=== PATIENT | male | born 1955 | race Hispanic/Latino ===

== ENCOUNTER 2020-02-07 08:53 | Emergency (ER) | payer MEDICARE ==
[~2020-02-07] VITALS: Ht 167.6 cm; Wt 72.6 kg
[2020-02-07] MEDS ORDERED: CLOPIDOGREL75 MG PO (09:21)
[2020-02-07] MEDS ORDERED: TOPROL XL25 MG PO (09:21)
[2020-02-07] MEDS ORDERED: LISINOPRIL10 MG PO (09:21)
[2020-02-07] MEDS ORDERED: TERAZOSIN HCL1 MG PO (09:21)
[2020-02-07] MEDS ORDERED: GLIPIZIDE ER5 MG PO (09:21)
[2020-02-07] MEDS ORDERED: OMEPRAZOLE40 MG PO (09:21)
[2020-02-07] MEDS ORDERED: JANUVIA100 MG PO (09:21)
[2020-02-07] MEDS ORDERED: ATORVASTATIN CA20 MG PO (09:21)
[2020-02-07] MEDS ORDERED: METFORMIN HCL500 MG PO (09:21)
[2020-02-07 09:24] LABS: BASOPHILS # (AUTO) 0.1 (0.0-0.1); BASOPHILS % 0.5 % (0.0-1.0); EOSINOPHILS # (AUTO) 0.2 (0.0-0.4); EOSINOPHILS % 1.8 % (0.0-6.0); HEMATOCRIT 39.5 % (38.2-49.6); HEMOGLOBIN 13.2 g/dL (14.0-18.0); LYMPHOCYTES % 15.1 % (18.0-39.1); MEAN CORPUSCULAR HEMOGLOBIN 29.5 pg (28-32); MEAN CORPUSCULAR HGB CONC 33.4 g/dL (31-35); MEAN CORPUSCULAR VOLUME 88.2 fL (81-99); MONOCYTES # (AUTO) 0.7 (0.2-0.8); MONOCYTES % 4.9 % (4.4-11.3); NEUTROPHILS # (AUTO) 10.3 (2.1-6.9); NEUTROPHILS % 76.7 % (38.7-80.0); PLATELET COUNT 297 x10e3/uL (140-360); RED BLOOD COUNT 4.48 x10e6/uL (4.3-5.7); RED CELL DISTRIBUTION WIDTH 13.1 % (11.7-14.4)
[2020-02-07] MEDS ORDERED: NITROGLYCERIN 0.4 MG SUBL SL PRN (09:30)
[2020-02-07 09:35] LABS: INR 0.99; PROTHROMBIN TIME 13.6 seconds (11.9-14.5)
[2020-02-07 09:36] LABS: PARTIAL THROMBOPLASTIN TIME 26.6 seconds (23.8-35.5)
[2020-02-07 09:42] LABS: ALANINE AMINOTRANSFERASE 55 IU/L (0-55); ALBUMIN 3.8 g/dL (3.5-5.0); ALBUMIN/GLOBULIN RATIO 1.3 (0.8-2.0); ALKALINE PHOSPHATASE 128 IU/L (40-150); ANION GAP 10.5 mmol/L (8-16); BLOOD UREA NITROGEN 9 mg/dL (7-26); BUN/CREATININE RATIO 9 (6-25); CALCIUM 8.8 mg/dL (8.4-10.2); CARBON DIOXIDE 27 mmol/L (22-29); CHLORIDE 102 mmol/L (98-107); CREATININE, SERUM 1.02 mg/dL (0.72-1.25); EST GLOMERULAR FILTRATION RATE > 60 ML/MIN (60-); GLUCOSE 347 mg/dL (74-118); POTASSIUM 4.5 mmol/L (3.5-5.1); SODIUM 135 mmol/L (136-145)
--- NOTE | 2020-02-07 09:57 | Diagnostic Imaging Report ---
X-ray chest AP portable Comparison: None History: Chest pain Findings: Poor respiratory effort. Central airways unremarkable. Possible cardiomegaly. No pleural effusion. No pneumothorax. No focal lung disease. Atherosclerotic aorta. Large central pulmonary arteries. Skeletal structures unremarkable. Upper abdomen unremarkable. Impression: Poor respiratory effort. No acute cardiopulmonary disease. Signed by: Anoop Mascroro MD on 02/07/2020 9:53 AM
--- NOTE | 2020-02-07 10:07 | Emergency Department Note ---
History of Present Illnes History of Present Illness Chief Complaint: Chest Pain History of Present Illness This is a 64 year old male presents for CP. C/o constant non radiating cp 1 hr prior to their arrival drinking coffee when pain started denies baldwin/n/v/blurred vision/previous mi's/jaw pain/sob taken directly to room 8 for ekg/line/lab hx of dm/htn/chol states relief with nitro given by ems vessel captain states nothing makes pain worse seen culturalink used to translate . 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 Arrival Mode: [facility] EMS Treatment RAIL LAYER: IV, EKG Additional Treatment RAIL LAYER: nitro History limited by: language barrier Network Security Officer Required: Yes Onset (how long ago): hour(s) (1) Location: L chest Quality: dull Onset quality: sudden Duration (how long): hour(s) (1) Timing of current episode: intermittent Progression: improving Chronicity: new Relieving factors: medication Exacerbating factors: none Associated symptoms: Reports denies other symptoms Treatments prior to arrival: aspirin Previous service: medications given Past Medical/Family History Physician Review I have reviewed the patient's past medical and family history. Any updates have been documented here. Past Medical History Recent Fever: No Clinical Suspicion of Infectio: No New/Unexplained Change in Ment: No Past Medical History: Hypertension, Diabetes, CVA, Hyperlipedemia Past Surgical History: None Social History Smoking Cessation: Never Smoker Counseling Performed: No Alcohol Use: None Any Illegal Drug Use: No Physically hurt or threatened: No Other Any Pre-Existing Lines (PICC,: No Review of Systems Review of Systems Constitutional: Reports no symptoms EENTM: Reports no symptoms Cardiovascular: Reports no symptoms, Reports chest pain Respiratory: Reports no symptoms Gastrointestinal: Reports no symptoms Genitourinary: Reports no symptoms Musculoskeletal: Reports no symptoms Integumentary: Reports no symptoms Neurological: Reports no symptoms Psychological: Reports no symptoms Endocrine: Reports no symptoms Hematological/Lymphatic: Reports no symptoms Physical Exam Related Data Allergies: Coded Allergies: No Known Allergies (Unverified , 02/07/20) Triage Vital Signs Vital Signs Date Time Temp Pulse Resp B/P (MAP) Pulse Ox O2 Delivery O2 Flow Rate FiO2 02/07/20 08:58 97.8 66 18 151/77 100 Room Air Vital signs reviewed: Yes Physical Exam CONSTITUTIONAL Constitutional: Present well-developed, Present well-nourished HENT HENT: Present normocephalic, Present atraumatic, Present oropharynx clear/moist, Present nose normal HENT L/R: Present left ext ear normal, Present right ext ear normal EYES Eyes: Reports PERRL, Reports conjunctivae normal NECK Neck: Present ROM normal PULMONARY Pulmonary: Present effort normal, Present breath sounds normal CARDIOVASCULAR Cardiovascular: Present regular rhythm, Present heart sounds normal, Present capillary refill normal, Present normal rate GASTROINTESTINAL Abdominal: Present soft, Present nontender, Present bowel sounds normal GENITOURINARY Genitourinary: Present exam deferred SKIN Skin: Present warm, Present dry MUSCULOSKELETAL Musculoskeletal: Present ROM normal NEUROLOGICAL Neurological: Present alert, Present oriented x 3, Present no gross motor or sensory deficits PSYCHOLOGICAL Psychological: Present mood/affect normal, Present judgement normal Results Laboratory Result Diagram: 02/07/2015 02/07/20 0915 Laboratory Laboratory Tests Test 02/07/20 09:45 02/07/20 09:15 White Blood Count 13.42 x10e3/uL (4.8-10.8) Red Blood Count 4.48 x10e6/uL (4.3-5.7) Hemoglobin 13.2 g/dL (14.0-18.0) Hematocrit 39.5 % (38.2-49.6) Mean Corpuscular Volume 88.2 fL (81-99) Mean Corpuscular Hemoglobin 29.5 pg (28-32) Mean Corpuscular Hemoglobin Concent 33.4 g/dL (31-35) Red Cell Distribution Width 13.1 % (11.7-14.4) Platelet Count 297 x10e3/uL (140-360) Neutrophils (%) (Auto) 76.7 % (38.7-80.0) Lymphocytes (%) (Auto) 15.1 % (18.0-39.1) Monocytes (%) (Auto) 4.9 % (4.4-11.3) Eosinophils (%) (Auto) 1.8 % (0.0-6.0) Basophils (%) (Auto) 0.5 % (0.0-1.0) Neutrophils # (Auto) 10.3 (2.1-6.9) Lymphocytes # (Auto) 2.0 (1.0-3.2) Monocytes # (Auto) 0.7 (0.2-0.8) Eosinophils # (Auto) 0.2 (0.0-0.4) Basophils # (Auto) 0.1 (0.0-0.1) Absolute Immature Granulocyte (auto 0.13 x10e3/uL (0-0.1) Prothrombin Time 13.6 seconds (11.9-14.5) Prothromb Time International Ratio 0.99 Activated Partial Thromboplast Time 26.6 seconds (23.8-35.5) Sodium Level 135 mmol/L (136-145) Potassium Level 4.5 mmol/L (3.5-5.1) Chloride Level 102 mmol/L (98-107) Carbon Dioxide Level 27 mmol/L (22-29) Anion Gap 10.5 mmol/L (8-16) Blood Urea Nitrogen 9 mg/dL (7-26) Creatinine 1.02 mg/dL (0.72-1.25) Estimat Glomerular Filtration Rate > 60 ML/MIN (60-) BUN/Creatinine Ratio 9 (6-25) Glucose Level 347 mg/dL (74-118) Calcium Level 8.8 mg/dL (8.4-10.2) Total Bilirubin 0.5 mg/dL (0.2-1.2) Aspartate Amino Transf (AST/SGOT) 59 IU/L (5-34) Alanine Aminotransferase (ALT/SGPT) 55 IU/L (0-55) Alkaline Phosphatase 128 IU/L (40-150) Troponin I 0.035 ng/mL (0-0.300) B-Type Natriuretic Peptide 25.7 pg/mL (0-100) Total Protein 6.7 g/dL (6.5-8.1) Albumin 3.8 g/dL (3.5-5.0) Globulin 2.9 g/dL (2.3-3.5) Albumin/Globulin Ratio 1.3 (0.8-2.0) Lab results reviewed: Yes Imaging Imaging results reviewed: Yes Diagnostics Tests Diagnostic test(s) reviewed: Yes Procedures 12 Lead ECG Interpretation ECG Interpretation : ECG: ECG 1 Network Security Officer: Interpreted by ED physician Date: Feb 07, 2020 Rhythm: sinus rhythm Rate: normal QRS axis: normal ST segments normal: Yes T waves normal: Yes Clinical Decision Tools HEART Score HEART Score: HEART Score Response (Comments) Value History Highly suspicious 2 EKG Non specific repolarization 1 Age 45 - 65 1 Risk factors 3 or more risk factors OR hx of CAD 2 Troponin < or = to normal limit Total 6 Assessment & Plan Medical Decision Making MDM 64-year-old man presents for left-sided chest pain. Occurred just prior to arrival. He took 324 of aspirin and EMS gave him nitroglycerin which resolved his pain. He states he has had cardiac catheterization in the past wasn't sure as to where. He thinks he may have had some stents placed. Heart score of 6. Initial troponin and EKG are unremarkable except for some T-wave flattening the lateral leads. At this time I believe the patient will need admission and as we are out of hospital visits will transfer to [place] this patient with Dr. Rogelio Shukla who has agreed to admit the patient. Pain is relieved with Nitro PRN Reassessment Reassessment time: 11:11 Assessment & Plan Final Impression: (1) Chest pain Depart Disposition: TRANS TO OTHER [facility] Last Vital Signs Date Time Temp Pulse Resp B/P (MAP) Pulse Ox O2 Delivery O2 Flow Rate FiO2 02/07/20 08:58 97.8 66 18 151/77 100 Room Air Home Meds Reported Medications Metoprolol Succinate (TOPROL XL) 25 Mg Tab.er.24h, 25 MG PO DAILY, #30 TAB 02/07/20 Lisinopril (LISINOPRIL) 10 Mg Tablet, 20 MG PO DAILY, #30 TAB 02/07/20 Glipizide (GLIPIZIDE ER) 5 Mg Tab.er.24, 10 MG PO DAILY 02/07/20 Terazosin Hcl (TERAZOSIN HCL) 1 Mg Capsule, 1 MG PO DAILY, #30 CAP 02/07/20 Clopidogrel Bisulfate (CLOPIDOGREL) 75 Mg Tablet, 75 MG PO DAILY, #30 TAB 02/07/20 Metformin Hcl (METFORMIN HCL) 500 Mg Tablet, 1000 MG PO BID, #60 TAB 02/07/20 Sitagliptin Phosphate (JANUVIA) 100 Mg Tablet, 100 MG PO DAILY, #30 TAB 02/07/20 Omeprazole (OMEPRAZOLE) 40 Mg Capsule.dr, 40 MG PO DAILY 02/07/20 Atorvastatin Calcium (ATORVASTATIN CALCIUM) 20 Mg Tablet, 80 MG PO HS, #30 TAB 02/07/20 Medications in the ED Nitroglycerin 0.4 mg Q5M PRN SL CHEST PAIN; Start 02/07/20 at 09:30; Stop 03/08/20 at 09:29 ANNY LOUIS MD Feb 07, 2020 10:07
== END 2020-02-07 13:01 | disposition other institution (70) ==
LOC: ER 09:17
DX: R07.9 Chest pain, unspecified (principal); I10 Essential (primary) hypertension; E11.9 Type 2 diabetes mellitus without complications; E78.5 Hyperlipidemia, unspecified; Z11.59 Encounter for screening for other viral diseases; Z86.73 Personal history of transient ischemic attack (TIA), and cerebral infarction without residual deficits
CPT/HCPCS: 36415; 71045; 80053; 83880; 84484; 85025; 85610; 85730; 93005; 99283; U0002

== ENCOUNTER 2021-01-10 22:27 | Emergency (ER) | payer MEDICARE ==
[~2021-01-10] VITALS: Ht 167.6 cm; Wt 72.6 kg
[~2021-01-10 22:27] MED LIST: ATORVASTATIN CA20 MG PO; CLOPIDOGREL75 MG PO; GLIPIZIDE ER5 MG PO; JANUVIA100 MG PO; LISINOPRIL10 MG PO; METFORMIN HCL500 MG PO; OMEPRAZOLE40 MG PO; TERAZOSIN HCL1 MG PO; TOPROL XL25 MG PO
[2021-01-10] MEDS ORDERED: ACETAMINOPHEN 325 MG TAB PO ONE (22:45)
[2021-01-10] MEDS ORDERED: CEFTRIAXONE 1 GM in SODIUM CHLORIDE 0.9% 50ML 50 ML IV ONE (22:45)
[2021-01-10 22:53] LABS: BASOPHILS % 0.2 % (0.0-1.0); HEMOGLOBIN 13.6 g/dL (14.0-18.0); LYMPHOCYTES # (AUTO) 3.5 (1.0-3.2); LYMPHOCYTES % 28.5 % (18.0-39.1); MEAN CORPUSCULAR HEMOGLOBIN 29.4 pg (28-32); MEAN CORPUSCULAR VOLUME 86.4 fL (81-99); MONOCYTES # (AUTO) 1.2 (0.2-0.8); MONOCYTES % 9.8 % (4.4-11.3); NEUTROPHILS # (AUTO) 7.4 (2.1-6.9); PLATELET COUNT 351 x10e3/uL (140-360); RED BLOOD COUNT 4.63 x10e6/uL (4.3-5.7); RED CELL DISTRIBUTION WIDTH 13.2 % (11.7-14.4)
[2021-01-10 23:02] LABS: CLARITY,URINE CLEAR (CLEAR); COLOR,URINE YELLOW (YELLOW); KETONES,URINE 1+ (NEGATIVE); LEUKOCYTE ESTERASE ,URINE NEGATIVE (NEGATIVE); NITRITE,URINE NEGATIVE (NEGATIVE); PROTEIN,URINE DIPSTICK 1+ (NEGATIVE); URINE UROBILINOGEN 1 mg/dL (0.2 - 1)
[2021-01-10 23:08] LABS: AMORPHOUS SEDIMENT,URINE FEW (FEW); BACTERIA,URINE FEW /HPF; EPITHELIAL CELLS,URINE RARE /LPF; RBC,URINE 0-5 /HPF (0-5); WBC,URINE (MAN) 0-5 /HPF (0-5)
[2021-01-10 23:11] LABS: ALBUMIN/GLOBULIN RATIO 1.1 (0.8-2.0); ANION GAP 17.6 mmol/L (8-16); CALCIUM 8.5 mg/dL (8.4-10.2); CREATININE, SERUM 0.96 mg/dL (0.72-1.25); POTASSIUM 3.6 mmol/L (3.5-5.1)
[2021-01-10 23:17] LABS: CREATINE KINASE MB 0.8 ng/mL (0-5.0)
[2021-01-11 03:47] VITALS: BP 132/65
== END 2021-01-11 02:00 | disposition home or self-care (01) ==
LOC: ER 23:43
DX: J20.9 Acute bronchitis, unspecified (principal); E78.5 Hyperlipidemia, unspecified; I10 Essential (primary) hypertension; Z86.73 Personal history of transient ischemic attack (TIA), and cerebral infarction without residual deficits; E11.9 Type 2 diabetes mellitus without complications; R05 Cough; Z20.822 Contact with and (suspected) exposure to COVID-19
CPT/HCPCS: 36415; 70450; 71045; 80053; 81001; 82550; 82553; 83605; 84484; 85025; 87040; 87086; 93005; 99284; J0696; U0002

== ENCOUNTER 2024-05-17 11:45 | Inpatient (IN) | payer MEDICARE ==
[~2024-05-17] VITALS: Ht 172.7 cm; Wt 82.1 kg
[2024-05-17 12:06] VITALS: PULSE 72; RESP 18; TEMP 98.3
[2024-05-17 12:48] LABS: BASOPHILS % 0.4 % (0.0-1.0); EOSINOPHILS # (AUTO) 0.2 (0.0-0.4); EOSINOPHILS % 1.7 % (0.0-6.0); HEMATOCRIT 40.5 % (38.2-49.6); HEMOGLOBIN 13.4 g/dL (14.0-18.0); LYMPHOCYTES % 30.7 % (18.0-39.1); MEAN CORPUSCULAR HEMOGLOBIN 30.1 pg (28-32); MEAN CORPUSCULAR HGB CONC 33.1 g/dL (31-35); MONOCYTES # (AUTO) 0.7 (0.2-0.8); MONOCYTES % 7.2 % (4.4-11.3); NEUTROPHILS # (AUTO) 5.8 (2.1-6.9); NEUTROPHILS % 59.5 % (38.7-80.0); PLATELET COUNT 319 x10e3/uL (140-360); RED BLOOD COUNT 4.45 x10e6/uL (4.3-5.7); RED CELL DISTRIBUTION WIDTH 12.4 % (11.7-14.4); WHITE BLOOD COUNT 9.68 x10e3/uL (4.8-10.8)
[2024-05-17 12:54] LABS: PROTHROMBIN TIME 13.8 seconds (11.9-14.5)
[2024-05-17 12:55] LABS: PARTIAL THROMBOPLASTIN TIME 27.3 seconds (23.8-35.5)
[2024-05-17 13:04] LABS: ALBUMIN 3.6 g/dL (3.5-5.0); ANION GAP 15.1 mmol/L (8-16); BILIRUBIN,TOTAL 0.5 mg/dL (0.2-1.2); CALCIUM 9.3 mg/dL (8.4-10.2); CREATININE, SERUM 0.86 mg/dL (0.72-1.25); MAGNESIUM 1.8 MG/DL (1.3-2.1); POTASSIUM 4.1 mmol/L (3.5-5.1); TOTAL PROTEIN 7.3 g/dL (6.5-8.1)
[2024-05-17 13:10] LABS: TROPONIN I 0.011 ng/mL (0-0.300)
[2024-05-17] MEDS: Vancomycin IV 1 GM in SODIUM CHLORIDE 0.9% 250ML 250 ML IV ONE (13:32)
[2024-05-17] MEDS ORDERED: DEXTROSE 50% SYRINGE 50 ML IV PRN (13:45)
[2024-05-17] MEDS ORDERED: ONDANSETRON HCL INJ 2MG/ML 2ML 2 MG/ML VIAL IV PRN (13:45)
[2024-05-17] MEDS: INSULIN LISPRO 100 UNIT/1 ML 3ML VIAL SQ SCH (16:30)
[2024-05-17 16:47] VITALS: BP 178/76; PULSE 58; RESP 17; TEMP 97.5; O2SAT 100
[2024-05-17] MEDS: SODIUM CHLORIDE 0.9% 1000ML 1,000 ML IV SCH (18:16)
[2024-05-17 18:23] VITALS: BP 178/76; PULSE 58; RESP 17; TEMP 97.5; O2SAT 100
[2024-05-17] MEDS ORDERED: ASPIRIN81 MG PO (18:36)
[2024-05-17] MEDS ORDERED: LISINOPRIL-HCT1 EAC1 PO (18:36)
[2024-05-17] MEDS ORDERED: ULTRAM 50MG50 MG PO (18:36)
[2024-05-17] MEDS: Morphine 4mg INJECTION 4 MG/ML INJ IV PRN (18:43)
[2024-05-17 20:00] VITALS: BP 182/84; PULSE 66; RESP 18; TEMP 98.5; O2SAT 100
[2024-05-17 21:00] VITALS: BP 182/84; PULSE 66; RESP 18; TEMP 98.5; O2SAT 100
[2024-05-17] MEDS ORDERED: FLOMAX0.4 MG PO (23:30)
[2024-05-18] VITALS (8 sets, daily range): BP systolic 135–178; BP diastolic 65–87; PULSE 64–88; RESP 18–20; TEMP 97.3–98.8; O2SAT 98–100
[2024-05-18 05:38] LABS: BASOPHILS # (AUTO) 0.1 (0.0-0.1); BASOPHILS % 0.5 % (0.0-1.0); EOSINOPHILS # (AUTO) 0.2 (0.0-0.4); EOSINOPHILS % 2.3 % (0.0-6.0); HEMATOCRIT 37.1 % (38.2-49.6); HEMOGLOBIN 12.2 g/dL (14.0-18.0); LYMPHOCYTES # (AUTO) 3.2 (1.0-3.2); MEAN CORPUSCULAR HEMOGLOBIN 30.3 pg (28-32); MEAN CORPUSCULAR HGB CONC 32.9 g/dL (31-35); MEAN CORPUSCULAR VOLUME 92.3 fL (81-99); MONOCYTES # (AUTO) 0.7 (0.2-0.8); MONOCYTES % 6.9 % (4.4-11.3); NEUTROPHILS # (AUTO) 5.7 (2.1-6.9); PLATELET COUNT 281 x10e3/uL (140-360); RED BLOOD COUNT 4.02 x10e6/uL (4.3-5.7); RED CELL DISTRIBUTION WIDTH 12.5 % (11.7-14.4); WHITE BLOOD COUNT 9.88 x10e3/uL (4.8-10.8)
[2024-05-18 06:10] LABS: ALBUMIN 3.1 g/dL (3.5-5.0); ANION GAP 10.6 mmol/L (8-16); BILIRUBIN,TOTAL 0.4 mg/dL (0.2-1.2); CALCIUM 8.6 mg/dL (8.4-10.2); CREATININE, SERUM 0.82 mg/dL (0.72-1.25); POTASSIUM 3.6 mmol/L (3.5-5.1); TOTAL PROTEIN 6.3 g/dL (6.5-8.1)
[2024-05-18] MEDS: ASPIRIN 81 MG CHEW TAB PO SCH (10:25)
[2024-05-18] MEDS: SITAGLIPTIN 100 MG TAB PO SCH (10:25)
[2024-05-18] MEDS: LISINOPRIL 20 MG TAB PO SCH (10:25)
[2024-05-18] MEDS: PANTOPRAZOLE SOD 40 MG TABEC PO SCH (10:25)
[2024-05-18] MEDS: CLOPIDOGREL BISULFATE 75 MG TAB PO SCH (10:25)
[2024-05-18] MEDS: TERAZOSIN HCL 1 MG CAP PO SCH (10:25)
[2024-05-18] MEDS: TAMSULOSIN HCL 0.4 MG CAP PO SCH (10:25)
[2024-05-18] MEDS: INSULIN LISPRO 100 UNIT/1 ML 3ML VIAL SQ SCH (10:27)
[2024-05-18] MEDS: INSULIN GLARGINE 100 UNITS/ML VIAL SQ ONE (10:27)
[2024-05-18] MEDS: HYDRALAZINE HCL 20 MG/ML VIAL IV PRN (12:34)
[2024-05-18] MEDS: INSULIN GLARGINE 100 UNITS/ML VIAL SQ SCH (21:00)
[2024-05-18] MEDS: PREGABALIN 50 MG CAP PO SCH (21:52)
[2024-05-18] MEDS: ATORVASTATIN 40 MG TAB PO SCH (21:53)
[2024-05-19] VITALS (7 sets, daily range): BP systolic 148–167; BP diastolic 67–86; PULSE 63–88; RESP 18–20; TEMP 97.9–99.5; O2SAT 95–100
[2024-05-19 05:16] LABS: BASOPHILS # (AUTO) 0.1 (0.0-0.1); BASOPHILS % 0.5 % (0.0-1.0); EOSINOPHILS # (AUTO) 0.1 (0.0-0.4); HEMATOCRIT 37.7 % (38.2-49.6); HEMOGLOBIN 12.5 g/dL (14.0-18.0); LYMPHOCYTES # (AUTO) 2.7 (1.0-3.2); LYMPHOCYTES % 27.3 % (18.0-39.1); MEAN CORPUSCULAR HEMOGLOBIN 30.2 pg (28-32); MEAN CORPUSCULAR HGB CONC 33.2 g/dL (31-35); MEAN CORPUSCULAR VOLUME 91.1 fL (81-99); MONOCYTES # (AUTO) 0.6 (0.2-0.8); MONOCYTES % 6.1 % (4.4-11.3); NEUTROPHILS # (AUTO) 6.5 (2.1-6.9); NEUTROPHILS % 64.8 % (38.7-80.0); PLATELET COUNT 292 x10e3/uL (140-360); RED BLOOD COUNT 4.14 x10e6/uL (4.3-5.7); RED CELL DISTRIBUTION WIDTH 12.8 % (11.7-14.4); WHITE BLOOD COUNT 9.96 x10e3/uL (4.8-10.8)
[2024-05-19 05:42] LABS: ANION GAP 12.6 mmol/L (8-16); CALCIUM 8.7 mg/dL (8.4-10.2); CREATININE, SERUM 0.9 mg/dL (0.72-1.25); POTASSIUM 3.6 mmol/L (3.5-5.1)
[2024-05-19] MEDS ORDERED: IOPAMIDOL 370 MG/ML 100 ML INFUS..BTL INJ ONE (16:24)
[2024-05-19] MEDS ORDERED: SODIUM CHLORIDE 0.9% 100 ML ONE (16:24)
[2024-05-20] VITALS (9 sets, daily range): BP systolic 146–161; BP diastolic 69–86; PULSE 57–79; RESP 18–19; TEMP 97.7–98.4; O2SAT 95–100
[2024-05-20 06:29] LABS: CHOL/HDL RATIO 3.9 (3.9-4.7)
[2024-05-20] MEDS: LISINOPRIL 20 MG TAB PO SCH (08:44)
[2024-05-20] MEDS: MUPIROCIN 2% OINT 22 GM TUBE TOP SCH ×2 (10:30→20:51)
[2024-05-21 06:48] LABS: BASOPHILS % 0.4 % (0.0-1.0); EOSINOPHILS # (AUTO) 0.2 (0.0-0.4); EOSINOPHILS % 2.6 % (0.0-6.0); HEMATOCRIT 39.1 % (38.2-49.6); HEMOGLOBIN 12.8 g/dL (14.0-18.0); LYMPHOCYTES # (AUTO) 2.6 (1.0-3.2); LYMPHOCYTES % 28.2 % (18.0-39.1); MEAN CORPUSCULAR HEMOGLOBIN 30.3 pg (28-32); MEAN CORPUSCULAR HGB CONC 32.7 g/dL (31-35); MEAN CORPUSCULAR VOLUME 92.4 fL (81-99); MONOCYTES # (AUTO) 0.6 (0.2-0.8); MONOCYTES % 6.9 % (4.4-11.3); NEUTROPHILS # (AUTO) 5.7 (2.1-6.9); NEUTROPHILS % 61.7 % (38.7-80.0); PLATELET COUNT 292 x10e3/uL (140-360); RED BLOOD COUNT 4.23 x10e6/uL (4.3-5.7); RED CELL DISTRIBUTION WIDTH 12.9 % (11.7-14.4)
[2024-05-21 07:11] LABS: ANION GAP 12.7 mmol/L (8-16); CALCIUM 8.8 mg/dL (8.4-10.2); CREATININE, SERUM 0.85 mg/dL (0.72-1.25); POTASSIUM 3.7 mmol/L (3.5-5.1)
[2024-05-21 08:45] VITALS: BP 161/81; PULSE 57; RESP 19; TEMP 98.2; O2SAT 95
[2024-05-21 09:14] VITALS: BP 180/83; PULSE 68; RESP 20; TEMP 98.6; O2SAT 98
[2024-05-21 16:48] VITALS: BP 167/78; PULSE 61; RESP 18; TEMP 97.9; O2SAT 100
[2024-05-21 20:00] VITALS: BP 169/69; PULSE 63; RESP 18; TEMP 97.5; O2SAT 100
[2024-05-21] MEDS: TRAMADOL HCL 50 MG TAB PO PRN (22:04)
[2024-05-22] VITALS: BP 159/79; PULSE 67; RESP 18; TEMP 97.6; O2SAT 98
[2024-05-22 04:00] VITALS: BP 158/92; PULSE 63; RESP 18; TEMP 98; O2SAT 100
[2024-05-22 08:45] VITALS: BP 131/74; PULSE 63; RESP 18; TEMP 98; O2SAT 100
[2024-05-22 12:24] VITALS: BP 127/80; PULSE 64; RESP 17; TEMP 98.3; O2SAT 98
[2024-05-22 16:00] VITALS: BP 132/64; PULSE 61; RESP 19; TEMP 97.5; O2SAT 97
[2024-05-22 20:00] VITALS: BP 150/80; PULSE 65; RESP 18; TEMP 98.2; O2SAT 99
[2024-05-23] VITALS (9 sets, daily range): BP systolic 120–191; BP diastolic 61–93; PULSE 50–75; RESP 15–19; TEMP 97.5–98.1; O2SAT 96–100
[2024-05-23] MEDS ORDERED: HEPARIN SOD/SOD CHLORIDE 2,000 ML ONE (09:16)
[2024-05-23] MEDS ORDERED: HEPARIN SOD (PORCINE) 1000 UNIT/ML 30ML ONE (09:16)
[2024-05-23] MEDS ORDERED: VERAPAMIL HCL 2.5 MG/ML 2 ML VIAL ONE (09:16)
[2024-05-23] MEDS ORDERED: LIDOCAINE HCL 2% LOCAL 20 ML VIAL ONE (09:16)
[2024-05-23] MEDS ORDERED: NITROGLYCERIN/D5W 200 MCG/ML 250 ML ONE (09:17)
[2024-05-23] MEDS ORDERED: SODIUM CHLORIDE 0.9% 1000ML 1,000 ML ONE ×2 (09:17→09:30)
[2024-05-23] MEDS ORDERED: IOPAMIDOL 370 MG/ML 100 ML INFUS..BTL INJ ONE ×3 (09:17→11:50)
[2024-05-23] MEDS ORDERED: FENTANYL CITRATE/PF 100MCG/2 ML INJ ONE ×2 (09:50→12:01)
[2024-05-23] MEDS ORDERED: MIDAZOLAM HCL 2 MG/2 ML VIAL ONE ×3 (09:50→12:00)
[2024-05-23] MEDS ORDERED: HEPARIN SOD/SOD CHLORIDE 1,000 ML ONE (12:06)
[2024-05-23] MEDS ORDERED: CLOPIDOGREL BISULFATE 75 MG TAB ONE (13:24)
[2024-05-24 04:10] VITALS: BP 148/67; PULSE 73; RESP 18; TEMP 98.3; O2SAT 100
[2024-05-24 08:23] VITALS: BP 152/65; PULSE 68; RESP 18; TEMP 98; O2SAT 98
[2024-05-24 08:38] VITALS: BP 152/65; PULSE 68; RESP 18; TEMP 98; O2SAT 98
[2024-05-24] MEDS: HYDROCHLOROTHIAZIDE 25 MG TAB PO SCH (09:04)
[2024-05-24 11:45] VITALS: BP 159/80; PULSE 83; RESP 18; TEMP 97.7; O2SAT 100
== END 2024-05-24 12:17 | disposition home or self-care (01) | DRG 271 ==
LOC: ER 11:48 → ERHOLD 13:46 → MED/SURG 16:58 → MED/SURG2 05-20 18:29
PROVIDERS: ADMIT Internal Medicine; ATTEND Internal Medicine
PROC: 04CK3ZZ Extirpation of Matter from Right Femoral Artery, Percutaneous Approach (ICD-10-PCS; principal; 2024-05-23)
PROC: 04CP3ZZ Extirpation of Matter from Right Anterior Tibial Artery, Percutaneous Approach (ICD-10-PCS; 2024-05-23)
PROC: 047K3Z1 Dilation of Right Femoral Artery using Drug-Coated Balloon, Percutaneous Approach (ICD-10-PCS; 2024-05-23)
PROC: 047P3ZZ Dilation of Right Anterior Tibial Artery, Percutaneous Approach (ICD-10-PCS; 2024-05-23)
PROC: B41D1ZZ Fluoroscopy of Aorta and Bilateral Lower Extremity Arteries using Low Osmolar Contrast (ICD-10-PCS; 2024-05-23)
DX: E11.51 Type 2 diabetes mellitus with diabetic peripheral angiopathy without gangrene (principal); I70.92 Chronic total occlusion of artery of the extremities; I87.331 Chronic venous hypertension (idiopathic) with ulcer and inflammation of right lower extremity; L03.115 Cellulitis of right lower limb; L97.819 Non-pressure chronic ulcer of other part of right lower leg with unspecified severity; E11.621 Type 2 diabetes mellitus with foot ulcer; L97.519 Non-pressure chronic ulcer of other part of right foot with unspecified severity; I70.235 Atherosclerosis of native arteries of right leg with ulceration of other part of foot; I70.202 Unspecified atherosclerosis of native arteries of extremities, left leg; L03.031 Cellulitis of right toe; E11.65 Type 2 diabetes mellitus with hyperglycemia; E11.628 Type 2 diabetes mellitus with other skin complications; Z79.84 Long term (current) use of oral hypoglycemic drugs; I10 Essential (primary) hypertension; I25.10 Atherosclerotic heart disease of native coronary artery without angina pectoris; Z95.5 Presence of coronary angioplasty implant and graft; E78.5 Hyperlipidemia, unspecified; N40.0 Benign prostatic hyperplasia without lower urinary tract symptoms; Z91.119 Patient's noncompliance with dietary regimen due to unspecified reason; Z91.148 Patient's other noncompliance with medication regimen for other reason; Z86.73 Personal history of transient ischemic attack (TIA), and cerebral infarction without residual deficits; Z79.899 Other long term (current) drug therapy
CPT/HCPCS: 36415; 37220; 37225; 37229; 71045; 75625; 75635; 75716; 76937; 80048; 80053; 80061; 82550; 82948; 83036; 83735; 84484; 85025; 85347; 85610; 85730; 87040; 93005; 93925; 96372; 99152; 99153; 99252; 99284; C1724; C1725; C1760; C1769; C1887; C1894; C2623; J0360; J1644; J1815; J2003; J2250; J2270; J2543; J7030; J7050; Q9967

== ENCOUNTER 2024-08-31 08:14 | Inpatient (IN) | payer MEDICARE ==
[~2024-08-31] VITALS: Ht 172.7 cm; Wt 82.1 kg
[~2024-08-31 08:14] MED LIST changes: +ASPIRIN81 MG PO; +FLOMAX0.4 MG PO; +LISINOPRIL-HCT1 EAC1 PO; +ULTRAM 50MG50 MG PO
[2024-08-31 08:46] LABS: BASOPHILS % 0.3 % (0.0-1.0); EOSINOPHILS # (AUTO) 0.1 (0.0-0.4); EOSINOPHILS % 0.6 % (0.0-6.0); HEMOGLOBIN 14.1 g/dL (14.0-18.0); LYMPHOCYTES # (AUTO) 2.6 (1.0-3.2); LYMPHOCYTES % 21.8 % (18.0-39.1); MEAN CORPUSCULAR HEMOGLOBIN 29.3 pg (28-32); MEAN CORPUSCULAR HGB CONC 34.4 g/dL (31-35); MEAN CORPUSCULAR VOLUME 85.2 fL (81-99); MONOCYTES # (AUTO) 0.6 (0.2-0.8); MONOCYTES % 5.1 % (4.4-11.3); NEUTROPHILS # (AUTO) 8.5 (2.1-6.9); NEUTROPHILS % 71.9 % (38.7-80.0); PLATELET COUNT 301 x10e3/uL (140-360); RED BLOOD COUNT 4.81 x10e6/uL (4.3-5.7); RED CELL DISTRIBUTION WIDTH 13.2 % (11.7-14.4); WHITE BLOOD COUNT 11.83 x10e3/uL (4.8-10.8)
[2024-08-31] MEDS: SODIUM CHLORIDE 0.9% 1000ML 1,000 ML IV STA (08:56)
[2024-08-31 09:03] LABS: ALANINE AMINOTRANSFERASE 35 IU/L (0-55); ALBUMIN 4.2 g/dL (3.5-5.0); ALBUMIN/GLOBULIN RATIO 1.2 (0.8-2.0); ALKALINE PHOSPHATASE 104 IU/L (40-150); ANION GAP 15.7 mmol/L (8-16); BILIRUBIN,TOTAL 0.9 mg/dL (0.2-1.2); BLOOD UREA NITROGEN 15 mg/dL (7-26); BUN/CREATININE RATIO 16 (6-25); CALCIUM 9.4 mg/dL (8.4-10.2); CARBON DIOXIDE 23 mmol/L (22-29); CHLORIDE 99 mmol/L (98-107); CREATINE KINASE 144 IU/L (30-200); CREATININE, SERUM 0.94 mg/dL (0.72-1.25); EST GLOMERULAR FILTRATION RATE 88 ML/MIN (>=60); GLUCOSE 175 mg/dL (74-118); POTASSIUM 3.7 mmol/L (3.5-5.1); SODIUM 134 mmol/L (136-145); TOTAL PROTEIN 7.8 g/dL (6.5-8.1)
[2024-08-31 09:05] LABS: INR 0.98; PROTHROMBIN TIME 13.6 seconds (11.9-14.5)
[2024-08-31 09:06] LABS: PARTIAL THROMBOPLASTIN TIME 27.6 seconds (23.8-35.5)
[2024-08-31 09:12] LABS: TROPONIN I < 0.001 ng/mL (0-0.300)
[2024-08-31] MEDS: Vancomycin IV 1 GM in SODIUM CHLORIDE 0.9% 250ML 250 ML IV ONE (09:31)
[2024-08-31] MEDS ORDERED: Morphine 2mg Syringe 2 MG/ML SYR IV PRN (10:00)
[2024-08-31] MEDS ORDERED: ONDANSETRON HCL INJ 2MG/ML 2ML 2 MG/ML VIAL IV PRN (10:00)
[2024-08-31] MEDS: SODIUM CHLORIDE 0.9% 1000ML 1,000 ML IV SCH (10:03)
[2024-08-31] MEDS: CLOPIDOGREL BISULFATE 75 MG TAB PO ONE (10:14)
[2024-08-31] MEDS: ASPIRIN 81 MG CHEW TAB PO ONE (10:14)
[2024-08-31 14:04] VITALS: PULSE 79; RESP 16; TEMP 98.1
[2024-08-31 14:35] VITALS: BP 137/93; PULSE 67; RESP 18; TEMP 99.6; O2SAT 100
[2024-08-31 19:20] VITALS: BP 165/67; PULSE 61; RESP 20; TEMP 98.1; O2SAT 99
[2024-08-31] MEDS: ATORVASTATIN 40 MG TAB PO SCH (20:43)
[2024-08-31] MEDS: Vancomycin IV 1 GM in SODIUM CHLORIDE 0.9% 250ML 250 ML IV SCH (20:43)
[2024-08-31] MEDS ORDERED: DEXTROSE 50% SYRINGE 50 ML IV PRN (23:15)
[2024-08-31] MEDS ORDERED: TRAMADOL HCL 50 MG TAB PO PRN (23:15)
[2024-09-01] VITALS (8 sets, daily range): BP systolic 148–172; BP diastolic 56–88; PULSE 58–77; RESP 18–22; TEMP 97.5–98.6; O2SAT 99–100
[2024-09-01 07:22] LABS: BASOPHILS % 0.4 % (0.0-1.0); EOSINOPHILS # (AUTO) 0.1 (0.0-0.4); EOSINOPHILS % 1.4 % (0.0-6.0); HEMATOCRIT 39.8 % (38.2-49.6); HEMOGLOBIN 13.7 g/dL (14.0-18.0); LYMPHOCYTES # (AUTO) 2.4 (1.0-3.2); LYMPHOCYTES % 23.8 % (18.0-39.1); MEAN CORPUSCULAR HEMOGLOBIN 29.7 pg (28-32); MEAN CORPUSCULAR HGB CONC 34.4 g/dL (31-35); MEAN CORPUSCULAR VOLUME 86.1 fL (81-99); MONOCYTES # (AUTO) 0.7 (0.2-0.8); MONOCYTES % 6.9 % (4.4-11.3); NEUTROPHILS # (AUTO) 6.8 (2.1-6.9); PLATELET COUNT 270 x10e3/uL (140-360); RED BLOOD COUNT 4.62 x10e6/uL (4.3-5.7); RED CELL DISTRIBUTION WIDTH 13.2 % (11.7-14.4); WHITE BLOOD COUNT 10.19 x10e3/uL (4.8-10.8)
[2024-09-01 08:00] LABS: ALBUMIN 3.8 g/dL (3.5-5.0); ALBUMIN/GLOBULIN RATIO 1.2 (0.8-2.0); ANION GAP 13.9 mmol/L (8-16); BILIRUBIN,TOTAL 0.8 mg/dL (0.2-1.2); CREATININE, SERUM 0.88 mg/dL (0.72-1.25); POTASSIUM 3.9 mmol/L (3.5-5.1)
[2024-09-01] MEDS: INSULIN LISPRO 100 UNIT/1 ML 3ML VIAL SQ SCH (08:33)
[2024-09-01] MEDS: SITAGLIPTIN 100 MG TAB PO SCH (08:39)
[2024-09-01] MEDS: PANTOPRAZOLE SOD 40 MG TABEC PO SCH (08:39)
[2024-09-01] MEDS: TAMSULOSIN HCL 0.4 MG CAP PO SCH (08:39)
[2024-09-01] MEDS: ASPIRIN 81 MG ENTERIC COATED PO SCH (08:39)
[2024-09-01] MEDS: CLOPIDOGREL BISULFATE 75 MG TAB PO SCH (08:39)
[2024-09-01] MEDS: TERAZOSIN HCL 1 MG CAP PO SCH (08:39)
[2024-09-01] MEDS ORDERED: CLOPIDOGREL BISULFATE 75 MG TAB PO SCH (09:00)
[2024-09-01] MEDS: ATORVASTATIN 40 MG TAB PO SCH (21:29)
[2024-09-02] VITALS (7 sets, daily range): BP systolic 139–180; BP diastolic 66–78; PULSE 63–87; RESP 17–21; TEMP 97.3–98.6; O2SAT 93–100
[2024-09-02] MEDS ORDERED: HYDRALAZINE HCL 20 MG/ML VIAL IV PRN (10:30)
[2024-09-02] MEDS ORDERED: ACETAMINOPHEN 325 MG TAB PO PRN (10:30)
[2024-09-02] MEDS: NIFEDIPINE CR 30 MG TAB PO ONE (10:56)
[2024-09-02] MEDS: RIVAROXABAN 10 MG TABLET PO SCH (12:50)
[2024-09-03 00:46] VITALS: BP 149/72; PULSE 65; RESP 17; TEMP 98.3; O2SAT 100
[2024-09-03] MEDS: NIFEDIPINE CR 30 MG TAB PO SCH (05:51)
[2024-09-03 08:26] LABS: BASOPHILS % 0.4 % (0.0-1.0); EOSINOPHILS # (AUTO) 0.1 (0.0-0.4); EOSINOPHILS % 0.9 % (0.0-6.0); HEMATOCRIT 39.2 % (38.2-49.6); HEMOGLOBIN 13.3 g/dL (14.0-18.0); LYMPHOCYTES % 28.2 % (18.0-39.1); MEAN CORPUSCULAR HEMOGLOBIN 29.7 pg (28-32); MEAN CORPUSCULAR HGB CONC 33.9 g/dL (31-35); MEAN CORPUSCULAR VOLUME 87.5 fL (81-99); MONOCYTES # (AUTO) 0.6 (0.2-0.8); MONOCYTES % 5.6 % (4.4-11.3); NEUTROPHILS # (AUTO) 6.8 (2.1-6.9); NEUTROPHILS % 64.6 % (38.7-80.0); PLATELET COUNT 260 x10e3/uL (140-360); RED BLOOD COUNT 4.48 x10e6/uL (4.3-5.7); RED CELL DISTRIBUTION WIDTH 13.2 % (11.7-14.4); WHITE BLOOD COUNT 10.56 x10e3/uL (4.8-10.8)
[2024-09-03 08:42] VITALS: BP 160/68; PULSE 71; RESP 20; TEMP 98.2; O2SAT 100
[2024-09-03 08:46] VITALS: BP 160/68; PULSE 71; RESP 20; TEMP 98.2; O2SAT 100
[2024-09-03 08:56] LABS: ANION GAP 14.6 mmol/L (8-16); CALCIUM 8.7 mg/dL (8.4-10.2); CREATININE, SERUM 0.82 mg/dL (0.72-1.25); POTASSIUM 3.6 mmol/L (3.5-5.1)
[2024-09-03 12:16] VITALS: BP 132/82; PULSE 78; RESP 20; TEMP 98.6; O2SAT 94
[2024-09-03 16:11] VITALS: BP 161/79; PULSE 72; RESP 20; TEMP 98.4; O2SAT 99
[2024-09-03 20:00] VITALS: BP 170/76; PULSE 63; RESP 20; TEMP 98.6; O2SAT 99
[2024-09-04] VITALS (8 sets, daily range): BP systolic 148–171; BP diastolic 68–81; PULSE 62–100; RESP 17–20; TEMP 97.4–98.6; O2SAT 99–100
[2024-09-04] MEDS: NIFEDIPINE CR 30 MG TAB PO SCH (17:03)
[2024-09-05 07:55] VITALS: BP 162/70; PULSE 71; RESP 18; TEMP 98.1; O2SAT 100
[2024-09-05 08:16] VITALS: BP 162/70; PULSE 71; RESP 18; TEMP 98.1; O2SAT 100
[2024-09-05 12:30] VITALS: BP 158/77; PULSE 77; RESP 20; TEMP 98; O2SAT 99
== END 2024-09-05 14:29 | disposition home or self-care (01) | DRG 638 ==
LOC: ER 08:19 → ERHOLD 09:56 → MED/SURG3 14:32
PROVIDERS: ADMIT Internal Medicine; ATTEND Internal Medicine
DX: E11.621 Type 2 diabetes mellitus with foot ulcer (principal); L03.115 Cellulitis of right lower limb; E11.51 Type 2 diabetes mellitus with diabetic peripheral angiopathy without gangrene; E11.42 Type 2 diabetes mellitus with diabetic polyneuropathy; L03.031 Cellulitis of right toe; L97.511 Non-pressure chronic ulcer of other part of right foot limited to breakdown of skin; I70.235 Atherosclerosis of native arteries of right leg with ulceration of other part of foot; I16.0 Hypertensive urgency; I10 Essential (primary) hypertension; E78.5 Hyperlipidemia, unspecified; M19.071 Primary osteoarthritis, right ankle and foot; M72.2 Plantar fascial fibromatosis; Z79.4 Long term (current) use of insulin; Z79.82 Long term (current) use of aspirin; Z79.01 Long term (current) use of anticoagulants; Z79.02 Long term (current) use of antithrombotics/antiplatelets; Z79.84 Long term (current) use of oral hypoglycemic drugs; Z98.62 Peripheral vascular angioplasty status; Z86.73 Personal history of transient ischemic attack (TIA), and cerebral infarction without residual deficits; Z87.891 Personal history of nicotine dependence
CPT/HCPCS: 36415; 71045; 80048; 80053; 82550; 82948; 83036; 84484; 85025; 85610; 85651; 85730; 86140; 93925; 96372; 99252; 99284; J0360; J2543; J7030; J7050

== ENCOUNTER 2024-10-07 17:43 | Emergency (ER) | payer MEDICARE ==
[~2024-10-07] VITALS: Ht 162.6 cm; Wt 82.1 kg
[~2024-10-07 17:43] MED LIST changes: +NIFEDIPINE ER30 M1 PO
[2024-10-07 18:22] VITALS: TEMP 98.3
[2024-10-07 19:09] LABS: BASOPHILS # (AUTO) 0.1 (0.0-0.1); BASOPHILS % 0.5 % (0.0-1.0); EOSINOPHILS # (AUTO) 0.1 (0.0-0.4); EOSINOPHILS % 1.1 % (0.0-6.0); HEMATOCRIT 37.5 % (38.2-49.6); LYMPHOCYTES # (AUTO) 2.7 (1.0-3.2); LYMPHOCYTES % 25.4 % (18.0-39.1); MEAN CORPUSCULAR HEMOGLOBIN 29.4 pg (28-32); MEAN CORPUSCULAR HGB CONC 34.7 g/dL (31-35); MEAN CORPUSCULAR VOLUME 84.8 fL (81-99); MONOCYTES # (AUTO) 0.7 (0.2-0.8); MONOCYTES % 6.3 % (4.4-11.3); NEUTROPHILS # (AUTO) 7.1 (2.1-6.9); NEUTROPHILS % 66.4 % (38.7-80.0); PLATELET COUNT 354 x10e3/uL (140-360); RED BLOOD COUNT 4.42 x10e6/uL (4.3-5.7); RED CELL DISTRIBUTION WIDTH 13.4 % (11.7-14.4); WHITE BLOOD COUNT 10.66 x10e3/uL (4.8-10.8)
[2024-10-07 19:19] LABS: INR 1.02
[2024-10-07 19:20] LABS: PARTIAL THROMBOPLASTIN TIME 28.4 seconds (23.8-35.5)
[2024-10-07 19:29] LABS: ALBUMIN 4.4 g/dL (3.5-5.0); ALBUMIN/GLOBULIN RATIO 1.2 (0.8-2.0); BILIRUBIN,TOTAL 0.5 mg/dL (0.2-1.2); CALCIUM 9.9 mg/dL (8.4-10.2); CREATININE, SERUM 0.88 mg/dL (0.72-1.25)
[2024-10-07 21:23] VITALS: PULSE 70; RESP 15
[2024-10-07] MEDS ORDERED: ULTRAM 50MG50 MG PO (21:51)
[2024-10-07 22:52] VITALS: BP 149/96; PULSE 81; RESP 18; O2SAT 95
[2024-10-08] MEDS ORDERED: IOPAMIDOL 370 MG/ML 100 ML INFUS..BTL INJ ONE (00:20)
== END 2024-10-07 22:16 | disposition home or self-care (01) ==
LOC: ER 18:36
DX: M25.552 Pain in left hip (principal); M79.605 Pain in left leg; I73.9 Peripheral vascular disease, unspecified; I10 Essential (primary) hypertension; E11.65 Type 2 diabetes mellitus with hyperglycemia; Z86.73 Personal history of transient ischemic attack (TIA), and cerebral infarction without residual deficits
CPT/HCPCS: 36415; 73706; 80053; 85025; 85610; 85730; 99284; Q9967

== ENCOUNTER 2024-10-20 20:54 | Emergency (ER) | payer MEDICARE ==
[~2024-10-20] VITALS: Ht 160 cm; Wt 83.9 kg
[2024-10-20 21:18] VITALS: TEMP 97.5
[2024-10-20 21:38] LABS: BASOPHILS # (AUTO) 0.1 (0.0-0.1); BASOPHILS % 0.4 % (0.0-1.0); EOSINOPHILS # (AUTO) 0.2 (0.0-0.4); EOSINOPHILS % 1.5 % (0.0-6.0); HEMATOCRIT 37.8 % (38.2-49.6); HEMOGLOBIN 13.2 g/dL (14.0-18.0); LYMPHOCYTES % 26.1 % (18.0-39.1); MEAN CORPUSCULAR HEMOGLOBIN 29.7 pg (28-32); MEAN CORPUSCULAR HGB CONC 34.9 g/dL (31-35); MEAN CORPUSCULAR VOLUME 85.1 fL (81-99); MONOCYTES # (AUTO) 0.7 (0.2-0.8); MONOCYTES % 6.4 % (4.4-11.3); NEUTROPHILS # (AUTO) 7.5 (2.1-6.9); NEUTROPHILS % 65.3 % (38.7-80.0); PLATELET COUNT 332 x10e3/uL (140-360); RED BLOOD COUNT 4.44 x10e6/uL (4.3-5.7); RED CELL DISTRIBUTION WIDTH 13.6 % (11.7-14.4); WHITE BLOOD COUNT 11.46 x10e3/uL (4.8-10.8)
[2024-10-20 21:51] LABS: INR 0.97; PROTHROMBIN TIME 13.5 seconds (11.9-14.5)
[2024-10-20 21:52] LABS: PARTIAL THROMBOPLASTIN TIME 28.1 seconds (23.8-35.5)
[2024-10-20 22:01] LABS: ALBUMIN 4.1 g/dL (3.5-5.0); ALBUMIN/GLOBULIN RATIO 1.2 (0.8-2.0); ANION GAP 15.9 mmol/L (8-16); BILIRUBIN,TOTAL 0.5 mg/dL (0.2-1.2); CALCIUM 9.7 mg/dL (8.4-10.2); CREATININE, SERUM 0.87 mg/dL (0.72-1.25); POTASSIUM 3.9 mmol/L (3.5-5.1); TOTAL PROTEIN 7.4 g/dL (6.5-8.1)
[2024-10-20] MEDS ORDERED: IOPAMIDOL 370 MG/ML 100 ML INFUS..BTL INJ ONE (22:16)
[2024-10-20] MEDS ORDERED: SODIUM CHLORIDE 0.9% 100 ML ONE (22:16)
[2024-10-20] MEDS ORDERED: HEPARIN 25,000 UNIT/D5W 250ML 250 ML IV ONE (23:42)
[2024-10-20] MEDS: HEPARIN SOD (PORCINE) 5,000 UNIT/ML VIAL IV ONE (23:47)
[2024-10-20] MEDS: HEPARIN SOD/DEXTROSE 5% 25000 UNIT/250 ML BAG IV SCH (23:48)
[2024-10-21 02:00] VITALS: PULSE 81; RESP 16
[2024-10-21] MEDS: ONDANSETRON HCL INJ 2MG/ML 2ML 2 MG/ML VIAL IV STA (02:39)
[2024-10-21] MEDS: Morphine 4mg INJECTION 4 MG/ML INJ IV ONE (02:39)
[2024-10-21 02:54] VITALS: RESP 18; TEMP 98.3; O2SAT 98
== END 2024-10-21 02:50 | disposition short-term general hospital (02) ==
LOC: ER 21:03
DX: M79.662 Pain in left lower leg (principal); I77.1 Stricture of artery; R53.1 Weakness; I73.9 Peripheral vascular disease, unspecified; I10 Essential (primary) hypertension; E11.65 Type 2 diabetes mellitus with hyperglycemia; E78.5 Hyperlipidemia, unspecified; Z86.73 Personal history of transient ischemic attack (TIA), and cerebral infarction without residual deficits; Z95.5 Presence of coronary angioplasty implant and graft
CPT/HCPCS: 36415; 73706; 80053; 85025; 85610; 85730; 99284; J1644; J2270; J2405; J7050; Q9967